=== PATIENT | female | born 1960 | race Caucasian/White ===

== ENCOUNTER → 2017-05-25 | Outpatient (CLI) | payer OTHER ==
[~2017-05-25] MED LIST: ADVIN50050 INH; ALBUAER2 INH; ALL180 PO; BUPRTAB51 PO; LOW OGESTREL PO; MOME50SP5 NAE; SNG10 PO
--- NOTE | 2017-05-25 10:50 | DIAGNOSTIC IMAGING REPORT ---
CHEST 2 VIEWS ROUTINE HISTORY: 56 years-old Female acute shortness of breath with cough for 3 weeks. COMPARISON: CT chest 05/30/2008 TECHNIQUE: Frontal and lateral views of the chest. FINDINGS: Cardiomediastinal and hilar silhouettes are within normal limits. Mild right hemidiaphragmatic elevation is redemonstrated. There is no pneumothorax, pleural effusion or focal airspace consolidation. Linear opacities of the lingula are again seen suggesting subsegmental atelectasis or scarring. The bones are intact. Upper abdominal structures appear unremarkable. IMPRESSION: Subsegmental atelectasis or scarring of the lingula without acute cardiopulmonary process. The above report was generated using voice recognition software. It may contain grammatical, syntax or spelling errors. Electronically signed by: Yasir Lehman M.D. 05/25/2017 10:49 AM Dictated Date/Time: 05/25/2017 10:47 AM
== END | disposition home or self-care (01) ==
LOC: C.RADBC 10:35
PROVIDERS: ATTEND Nurse Practitioner Family
DX: R05 Cough (principal); R06.2 Wheezing

== ENCOUNTER 2024-11-10 05:16 | Observation (INO) ==
--- NOTE | 2024-10-28 16:01 | Anesthesiology Consultation ---
Date of Service October 28, 2024 Assessment & Plan (1) Encounter for pre-operative examination: - Per tin flipper on 10/28/24: No known infectious disease contacts, current infectious disease symptoms in past 10 days or COVID positive test result in the past 30 days. Chart Review Chart Review: Acceptable Risk for Surgery and Patient NOT seen in Pre Admission Testing History Surgery Operation Date: 11/10/24 08:20 Proposed Procedures p Laparoscopic Cholecystectomy with Cholangiogram, Possible Open - Sonu Barney MD, FACS Height/Weight Height: 5 ft 5.5 in Weight: 83.915 kg Allergies Allergy/AdvReac Type Severity Reaction Status Date / Time codeine AdvReac Mild sick to Verified 10/28/24 15:06 stomach Medications Home Medications Medication Instructions Recorded Confirmed Last Taken bupropion HCl 300 mg 24 hr tablet, 300 mg PO QAM 11/17/19 10/28/24 Unknown extended release fluticasone propionate 230 2 puffs inhalation BID 11/17/19 10/28/24 Unknown mcg-salmeterol 21 mcg/actuation HFA inhaler meloxicam 15 mg tablet 15 mg PO QAM 11/17/19 10/28/24 Unknown albuterol sulfate 2.5 mg/3 mL 2.5 mg inhalation Q4H PRN sob 11/23/19 10/28/24 Unknown (0.083 %) solution for nebulization albuterol sulfate 90 mcg/actuation 2 puffs inhalation Q4H PRN 11/23/19 10/28/24 Unknown aerosol inhaler shortness of breath or wheezing #18 grams fexofenadine 180 mg tablet 180 mg PO QAM 10/28/24 10/28/24 Unknown pantoprazole 40 mg tablet,delayed 40 mg PO QAM 10/28/24 10/28/24 Unknown release vitamin E 200 unit tablet 180 mg PO QAM 10/28/24 10/28/24 Unknown Past Medical History Medical History (Updated 10/28/24 @ 15:58 by Samia Alonso PA-C) Asthma "rarely uses rescue inhaler" Depression Elevated cholesterol GERD (gastroesophageal reflux disease) Herpes simplex type 1 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>just completed valtrex History of bronchitis Seasonal allergies Past Family History Family History Unknown Heart disease COPD (chronic obstructive pulmonary disease) Ulcerative colitis Asthma Mother Clotting disorder Heart disease Stroke Other No family history of adverse response to anesthesia Past Surgical History Surgical History History of bronchoscopy History of carpal tunnel surgery right/left History of tooth extraction Hx of colonoscopy Social History Smoking Status: Former smoker Do You Dip or Chew Tobacco: No Smoking End Date: at age 27 Hx Alcohol Use: No substance use type: does not use Lab Results Anesthesia Preop Results Results Anesthesia Widget: WBC 5.18 K/ul (4.8-10.8) 10/03/24 Hgb 15.3 g/dl (12.0-16.0) 10/03/24 Hct 44.7 % (37.0-47.0) 10/03/24 Plt 364 K/uL (130-400) 10/03/24 Na 140 mmol/L (136-145) 10/03/24 K 4.1 mmol/L (3.5-5.1) 10/03/24 Cl 106 mmol/L (98-107) 10/03/24 CO2 28 mmol/L (21-32) 10/03/24 BUN 15 mg/dl (6-23) 10/03/24 Creat 1.10 mg/dl (0.6-1.2) 10/03/24 Glucose Level 91 mg/dl (70-99(Fasting)) 10/03/24 Testing Electrocardiogram Date: 09/26/24 NSR, rate 94 bpm Left anterior fascicular block
[2024-11-10] MEDS: LACTATED RINGER'S 1,000 ML IV SCH (05:47)
--- NOTE | 2024-11-10 06:15 | History & Physical Bridge Note ---
Date of Service November 10, 2024 History & Physical Bridge Note I have examined the patient, reviewed the History & Physical and in the interval since the performance of the History & Physical I have noted the following changes of clinical significance: no changes noted SO at bedside All question answered
[2024-11-10] MEDS ORDERED: ONDANSETRON INJ 2 MG/ML 2 ML VIAL ONE ×2 (06:39→15:03)
[2024-11-10] MEDS ORDERED: ROCURONIUM BROMIDE 10 MG/ML 5 ML VIAL IV ONE ×3 (06:39→15:03)
[2024-11-10] MEDS ORDERED: DEXAMETHASONE SOD INJ 4 MG/ML VIAL ONE ×3 (06:39→15:03)
[2024-11-10] MEDS ORDERED: PROPOFOL IV EMULSION 10 MG/ML 20 ML VIAL IV ONE ×2 (06:39→15:03)
[2024-11-10] MEDS ORDERED: fentaNYL citrate PF 100 MCG/2 ML VIAL ONE ×2 (06:40→15:03)
[2024-11-10] MEDS ORDERED: MIDAZOLAM HCL 1 MG/ML 2ML VIAL ONE ×2 (06:40→15:03)
[2024-11-10] MEDS ORDERED: SUGAMMADEX SODIUM 200 MG/2 ML VIAL IV ONE (06:42)
[2024-11-10] MEDS ORDERED: PHENYLEPHRINE HCL 10 MG/ML VIAL ONE (06:44)
[2024-11-10] MEDS ORDERED: ATROPINE SULFATE 0.1 MG/ML 10ML SYR IV PRN ×2 (06:53→15:24)
[2024-11-10] MEDS ORDERED: ONDANSETRON INJ 2 MG/ML 2 ML VIAL IV PRN ×3 (06:53→15:48)
[2024-11-10] MEDS ORDERED: ePHEDrine sulfate 50 MG/ML AMP IV PRN ×2 (06:53→15:24)
[2024-11-10] MEDS ORDERED: PROMETHAZINE HCL 6.25 MG in SODIUM CHLORIDE 0.9% 50 ML IV PRN (06:53)
[2024-11-10] MEDS: ceFAZolin 2000MG 2,000 MG/15 ML SYR IV ONE (07:12)
[2024-11-10] MEDS ORDERED: diphenhydrAMINE 50 MG/ML VIAL ONE (07:14)
[2024-11-10] MEDS ORDERED: ceFAZolin 330 MG/ML 1 GM VIAL ONE (07:14)
[2024-11-10] MEDS: GLUCAGON FOR INJ 1 MG VIAL ONE (07:35)
[2024-11-10] MEDS ORDERED: KETOROLAC 30 MG/ML VIAL ONE (07:41)
[2024-11-10] MEDS: OPTIRAY 320 100ml IV PRN (07:45)
--- NOTE | 2024-11-10 08:17 | Post Operative Brief Note ---
Immediate Post Op Note Date of Surgery November 10, 2024 Pre & Post Diagnosis Operation Date: 11/10/24 07:00 Pre-Op Diagnosis: Gallstones Post-Op Diagnosis: Gallstones I identified the patient and participated in the time-out.: Yes Procedure Operation Date: 11/10/24 07:00 Actual Procedures p Laparoscopic Cholecystectomy with Cholangiogram(Not Applicable) - Sonu Barney MD, FACS Surgeon Sonu Barney MD, FACS Cant Hooker Shiela AGUILAR Estimated Blood Loss 10 Findings Consistent with Post-Op Diagnosis Drains Elmer Drain
[2024-11-10] MEDS: LIDOCAINE 1%/EPINEPHRINE 1:100,000 50 ML VIAL ONE (08:23)
--- NOTE | 2024-11-10 08:55 | Operative Report ---
PG Post Operative Report Pre & Post Diagnosis Operation Date: 11/10/24 07:00 Pre-Op Diagnosis: Gallstones Post-Op Diagnosis: Gallstones I identified the patient and participated in the time-out.: Yes Procedure Operation Date: 11/10/24 07:00 Actual Procedures p Laparoscopic Cholecystectomy with Cholangiogram(Not Applicable) - Sonu Barney MD, FACS The patient was brought into the operating room supine position general endotracheal anesthesia systemic biotics on board patient identified timeout was had made a small incision supraumbilically sufficient for a Veress needle followed by 5 mm trocar the patient had a prominent abdominal tissue in fact the Veress needle was to the hub before we were able to enter the abdomen once established good pneumoperitoneum on direct visualization we placed an epigastric 5 mm port and 2 right upper quadrant 5 mm ports on direct visualization the patient was rotated to the left in reverse Trendelenburg able to identify the gallbladder was grasped with the lateral right upper quadrant trocar site elevated the gallbladder which was slightly tense no adhesions at this point we worked her way to the leo hepatis area identified the cystic duct we can easily appreciate the common bile duct there was slightly prominent we are able to dissect out around the cystic duct which was dilated we clipped a pproximately one 5 mm trocar and a small opening in the cystic duct was made a 4 urethral catheter transversing abdominal wall was positioned in the cystic duct x-rays were taken which showed a filling defect in the distal common bile duct we gave 1 mg of glucagon tried to flush it out was unsuccessful therefore at this point we continued with dividing the cystic duct twice with clips 5 mm and took the antegrade approach to remove the gallbladder but prior to doing that since the gallbladder was slightly tense we aspirated a significant amount that would make it easier to grasp and manipulated part of the gallbladder was intrahepatic but we meticulously dissected out to avoid any significant blood loss once the gallbladder was removed from the liver placed in an Endopouch and taken out intact through the epigastric port we needed to enlarge the port such because the patient had a very prominent stones that we were able to remove with a Viri clamp and a sponge forceps we irrigated the subhepatic suprahepatic area sufficiently there were small bleeders in the gallbladder fossa that we cauterized at this point we elected to drain the area since the patient was going to have an ERCP and a 19 Elmer drain was brought into the wound entering into the epigastric area and placed the subhepatic leak taken it out to the lateral right upper quadrant trocar attaching the skin edge with 2-0 silk we then placed the camera in the mid epigastric port to visualize the initial entry into the abdomen no bleeding was identified and also we visualized the epigastric port the site and it was removed no bleeding was identified ports were removed since we had to enlarge the incision in the epigastric area I placed a fascial stitch 2-0 Vicryl and also 2-0 Vicryl subcutaneous 4-0 Monocryl subcuticularly Steri-Strips applied procedure was tolerated well by the patient estimated blood loss 10 cc AddendumShiela AGUILAR was present about the procedure and helped the retraction exposure wound closure Surgeon Sonu Barney MD, FACS Currency Examiner Shiela AGUILAR Estimated Blood Loss 10 Findings Consistent with Post-Op Diagnosis Chronic cholecystitis cholelithiasis and choledocholithiasis Specimens Gallbladder and cannot Drains 19 Elmer subhepatic Complications None Indications Increased abdominal discomfort right upper quadrant pain ultrasound documenting cholelithiasis slight dilated common bile duct which was present on a previous ultrasound that she had on 09/15/2022 and was unchanged from the ultrasound that she had on 10/03/2024 Description of Procedure merda I attest to the content of the Intraoperative Record and any orders documented therein. Any exceptions are noted below.
[2024-11-10] MEDS: fentaNYL citrate PF 100 MCG/2 ML VIAL IV PRN (09:00)
--- NOTE | 2024-11-10 09:21 | Anesthesiology Progress Note ---
Date of Service November 10, 2024 Anesthesia Post Procedure Vital Signs Vital Signs: Temp Pulse Pulse Resp BP Pulse Ox O2 Del Method 11/10/24 09:15 73 18 121/72 96 Nasal Cannula 11/10/24 09:05 69 16 119/70 92 Nasal Cannula 11/10/24 08:55 73 15 121/68 95 Room Air 11/10/24 08:45 74 20 115/67 94 Oxymask 11/10/24 08:35 76 22 125/65 92 Oxymask 11/10/24 08:33 36.1 C L 81 18 110/65 92 Oxymask 11/10/24 05:48 36.7 C 83 20 137/86 94 Room Air O2 Flow Rate 11/10/24 09:15 2 11/10/24 09:05 4 11/10/24 08:55 11/10/24 08:45 9 11/10/24 08:35 9 11/10/24 08:33 9 11/10/24 05:48 Pain Intensity Abdomen: Pain Intensity: 5 Transfer of Care Handoff Completed per policy Notes Mental Status: alert / awake / arousable and participated in evaluation Patient Amnestic to Procedure: Yes Nausea / Vomiting: adequately controlled Pain: adequately controlled Airway Patency, RR, SpO2: stable & adequate BP & HR: stable & adequate Hydration State: stable & adequate Anesthetic Complications: no major complications apparent and Pt Satisfied with anesthetic care
[2024-11-10] MEDS: HYDROmorphone INJ 1 MG/ML SYRINGE IV PRN (09:54)
[2024-11-10] MEDS ORDERED: ALBUTEROL HFA 8 GM INHALER INH PRN (11:12)
[2024-11-10] MEDS ORDERED: ALBUTEROL 0.083% NEBU SOLN 3 ML VIAL INH PRN (11:12)
[2024-11-10] MEDS ORDERED: MoRPHine SULFATE 4 MG/ML 1 ML CARP\\VIAL IV PRN (11:12)
--- NOTE | 2024-11-10 11:28 | Gastrointestinal Consultation ---
Date of Consultation November 10, 2024 Assessment & Plan (1) Gallstones: 63 year old female s/p CCY on 11/10/24 being admitted for a positive intraoperative cholangiogram. She has had biliary dilation on previous imaging modalities and transaminase elevation. Maintain NPO status Will discuss timing of ERCP w/ attending - Risks, benefits, alternative to ERCP testing discussed We appreciate assistance in the management of any serological abnormality and corrections to include: hemoglobin >7, INR <2, platelets >50,000, potassium levels >3.5 but <5.3, and sodium levels within 5 points of the reference range prior to endoscopic evaluation. Thank you for allowing us to participate in the care of this patient. Please call with any acute changes, questions or concerns. Please see addendum below with additional recommendation from my supervising physician. I spent a total of 60 minutes on the date of service in review of patient's record, and previously obtained information in person and appropriate medical visit, discussion and education of plan, with patient and/or caregiver, placing orders for tests/referral/procedures as medically necessary and documentation of pertinent clinical information in patient's medical records for their visit today. Supervising Physician Co-Signing Physician Notes Documented common duct stone on intraoperative cholangiogram. Patient is INR is normal. Reviewed in detail ERCP. Benefits including stone extraction risks including perforation bleeding and pancreatitis. Potential failure rate of cannulation also discussed. Patient agreeable to proceed. Proceed today. Give indomethacin suppositories. History of Present Illness Reason for Consultation: + IOC Requesting Physician: Sonu Barney MD, FACS Attending Physician: Sonu Barney MD, FACS History of Present Illness 63 year old female w/ history of asthma and others below admitted following CCY today for a positive IOC. Pt was seen and evaluated in PACU. updated in waiting room. She notes intermittent post-prandial abd pain, specifically after greasier/fattier foods. Known gallstones and decision was made to proceed with CCY. She is still drowsy from sedation but denies any acute abd pain today. Tbili 0.6 AST 41 ALT 118 ALKP 138 ABD US 2024: Cholelithiasis without sonographic evidence of acute cholecystitis.Borderline dilation of the common bile duct is unchanged from prior. Hepatic steatosis. Allergies Allergy/AdvReac Type Severity Reaction Status Date / Time codeine AdvReac Mild sick to Verified 11/10/24 05:33 stomach Home Medications Medication Instructions Recorded Confirmed Type bupropion HCl 300 mg 24 hr tablet, 300 mg PO QAM 11/17/19 11/10/24 History extended release fluticasone propionate 230 2 puffs inhalation BID 11/17/19 11/10/24 History mcg-salmeterol 21 mcg/actuation HFA inhaler meloxicam 15 mg tablet 15 mg PO QAM 11/17/19 11/10/24 History albuterol sulfate 2.5 mg/3 mL 2.5 mg inhalation Q4H PRN sob 11/23/19 11/10/24 History (0.083 %) solution for nebulization albuterol sulfate 90 mcg/actuation 2 puffs inhalation Q4H PRN 11/23/19 11/10/24 Rx aerosol inhaler shortness of breath or wheezing #18 grams fexofenadine 180 mg tablet 180 mg PO QAM 10/28/24 11/10/24 History pantoprazole 40 mg tablet,delayed 40 mg PO QAM 10/28/24 11/10/24 History release vitamin E 200 unit tablet 180 mg PO QAM 10/28/24 11/10/24 History Patient History Medical History Herpes simplex type 1 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>just completed valtrex GERD (gastroesophageal reflux disease) Depression Elevated cholesterol Seasonal allergies Asthma "rarely uses rescue inhaler" History of bronchitis Surgical History (Updated 11/10/24 @ 09:46 by Dina Ladd RN) S/P laparoscopic cholecystectomy (11/10/24) Laparoscopic Cholecystectomy with Cholangiogram with kimberly drain Dr. Barney History of tooth extraction History of bronchoscopy Hx of colonoscopy History of carpal tunnel surgery right/left Family History Unknown Heart disease COPD (chronic obstructive pulmonary disease) Ulcerative colitis Asthma Mother Clotting disorder Heart disease Stroke Other No family history of adverse response to anesthesia Social History (Updated 10/26/24 @ 15:52 by Dina Ladd RN) Smoking Status: Former smoker Tobacco Type: Cigarettes Smoking End Date: at age 27; Second Hand Exposure: Yes (as a child); Do You Dip or Chew Tobacco: No; Hx Alcohol Use: No Preferred Language: Burmese Inside Outside Sales Representative Required: No Beliefs That Will Affect Care: None marital status: Current Living Situation: Spouse current occupational status: retired Feels Safe at Home: Yes Safety Concerns: Feels Safe At This Time during the past year weight has: remained stable Assistive Devices: Glasses Review of Systems Review of Systems: All other findings negative except as noted in HPI. Physical Exam Constitutional: WD/WN, vitals as above Respiratory: normal respiratory effort Cardiovascular: Rate/Rhythm: regular rate and regular rhythm Gastrointestinal (Abdomen): Inspection/Auscultation: normal bowel sounds Percussion/Palpation: abdomen soft Results & Data Vital Signs (Past 12 Hours) Vital Signs Temp Pulse Pulse Resp BP Pulse Ox O2 Del Method 11/10/24 11:00 79 21 122/66 92 Nasal Cannula 11/10/24 10:45 77 21 116/72 92 Nasal Cannula 11/10/24 10:30 76 20 129/72 92 Nasal Cannula 11/10/24 10:15 71 14 127/69 94 Nasal Cannula 11/10/24 10:05 75 17 123/73 94 Nasal Cannula 11/10/24 09:55 75 15 130/79 95 Nasal Cannula 11/10/24 09:45 77 11 L 136/69 94 Nasal Cannula 11/10/24 09:35 70 13 132/69 95 Nasal Cannula 11/10/24 09:25 75 11 L 120/66 94 Nasal Cannula 11/10/24 09:15 73 18 121/72 96 Nasal Cannula 11/10/24 09:05 69 16 119/70 92 Nasal Cannula 11/10/24 08:55 73 15 121/68 95 Room Air 11/10/24 08:45 74 20 115/67 94 Oxymask 11/10/24 08:35 76 22 125/65 92 Oxymask 11/10/24 08:33 97.0 F L 81 18 110/65 92 Oxymask 11/10/24 05:48 98.1 F 83 20 137/86 94 Room Air O2 Flow Rate 11/10/24 11:00 2 11/10/24 10:45 2 11/10/24 10:30 2 11/10/24 10:15 2 11/10/24 10:05 2 11/10/24 09:55 2 11/10/24 09:45 2 11/10/24 09:35 2 11/10/24 09:25 2 11/10/24 09:15 2 11/10/24 09:05 4 11/10/24 08:55 11/10/24 08:45 9 11/10/24 08:35 9 11/10/24 08:33 9 11/10/24 05:48 PG Care Time/CCT Total # of Minutes Spent Total Time Spent with Patient: Total time spent is greater than 50% in coordination of care (as documented) at patient's floor/unit and/or counseling patient: Coding Level of Care Code 06296 INT INP/OBS CARE MIN Diagnoses Gallstones K80.20
[2024-11-10] MEDS: SODIUM CHLORIDE 0.9% 1,000 ML IV SCH (11:33)
[2024-11-10] MEDS: ACETAMINOPHEN 1,000 MG/100 ML VIAL IV PRN (11:35)
[2024-11-10] MEDS: ONDANSETRON INJ 2 MG/ML 2 ML VIAL ONE (11:44)
[2024-11-10 12:32] LABS: Basophils # (auto) 0.02 K/uL (0.00-0.20); Basophils % (auto) 0.2 %; Eosinophils # (auto) 0.02 K/uL (0.00-0.50); Eosinophils % (auto) 0.2 %; Hematocrit (blood only) 40.1 % (37.0-47.0); Hemoglobin 13.7 g/dl (12.0-16.0); Immature Granulocytes # (auto) 0.04 K/uL (0.01-0.20); Immature Granulocytes % (auto) 0.4 %; Lymphocytes # (auto) 0.35 K/uL (1.20-3.40); Lymphocytes % (auto) 3.5 %; Mean Corpuscular Hemoglobin 32.5 pg (25.0-34.0); Mean Corpuscular Hgb Conc 34.2 g/dL (32.0-36.0); Mean Platelet Volume 9.5 fL (9.4-12.4); Monocytes % (auto) 7.1 %; Neutrophils # (auto) 8.77 K/uL (1.40-6.50); Neutrophils % (auto) 88.6 %; Platelet Count 279 K/uL (130-400); RDW Coefficient of Variation 11.9 % (11.5-14.5); RDW Standard Deviation 41.1 fL (36.4-46.3); Red Blood Count 4.22 M/uL (4.20-5.40)
[2024-11-10] MEDS: ONDANSETRON INJ 2 MG/ML 2 ML VIAL IV STA (12:47)
[2024-11-10 12:51] LABS: Albumin Globulin Ratio 1.6 (0.9-2); Albumin Level 3.9 gm/dl (3.4-5.0); BUN Creatinine Ratio 13.1 (10-20); Calcium 9.2 mg/dl (8.6-10.3); Creatinine Clr Calc Pharmacy 64.1 ml/min; Globulin 2.4 gm/dl (2.5-4.0); Total Protein 6.3 gm/dl (6.0-8.3)
[2024-11-10 12:56] LABS: Prothrombin Time 10.6 Seconds (9.0-12.0)
[2024-11-10] MEDS: buPROPion XL 300 MG TABCR PO SCH (13:36)
[2024-11-10] MEDS: PANTOprazole 40 MG TAB PO SCH (13:40)
[2024-11-10] MEDS: FEXOFENADINE HCL 180 MG TAB PO SCH (13:40)
[2024-11-10] MEDS ORDERED: LIDOCAINE 2% 2 ML VIAL/AMP(20MG/ML) INFIL ONE (15:03)
[2024-11-10] MEDS ORDERED: SUCCINYLCHOLINE CHLORIDE 20 MG/ML 10 ML VIAL IV ONE (15:09)
[2024-11-10] MEDS ORDERED: fentaNYL citrate PF 100 MCG/2 ML VIAL IV PRN (15:24)
--- NOTE | 2024-11-10 15:24 | Anesthesiology Consultation ---
Date of Service November 10, 2024 Assessment & Plan Chart Review Chart Review: Acceptable Risk for Surgery and Patient NOT seen in Pre Admission Testing Consults Requested none History Surgery Operation Date: 11/10/24 07:00 Proposed Procedures p Laparoscopic Cholecystectomy with Cholangiogram, Possible Open - Sonu Barney MD, FACS Operation Date: 11/10/24 07:50 Proposed Procedures p Endoscopic Retrograde Cholangiopancreatogram - Pierce Rosa MD Height/Weight Height: 5 ft 5.5 in Weight: 85.1 kg Allergies Allergy/AdvReac Type Severity Reaction Status Date / Time codeine AdvReac Mild sick to Verified 11/10/24 05:33 stomach Medications Home Medications Medication Instructions Recorded Confirmed Last Taken bupropion HCl 300 mg 24 hr tablet, 300 mg PO QAM 11/17/19 11/10/24 11/10/24 04:30 extended release fluticasone propionate 230 2 puffs inhalation BID 11/17/19 11/10/24 Unknown mcg-salmeterol 21 mcg/actuation HFA inhaler meloxicam 15 mg tablet 15 mg PO QAM 11/17/19 11/10/24 11/03/24 08:00 albuterol sulfate 2.5 mg/3 mL 2.5 mg inhalation Q4H PRN sob 11/23/19 11/10/24 Unknown (0.083 %) solution for nebulization albuterol sulfate 90 mcg/actuation 2 puffs inhalation Q4H PRN 11/23/19 11/10/24 Unknown aerosol inhaler shortness of breath or wheezing #18 grams fexofenadine 180 mg tablet 180 mg PO QAM 10/28/24 11/10/24 11/10/24 04:30 pantoprazole 40 mg tablet,delayed 40 mg PO QAM 10/28/24 11/10/24 11/10/24 04:30 release vitamin E 200 unit tablet 180 mg PO QAM 10/28/24 11/10/24 11/03/24 08:00 Active Medications Generic Name Dose Route Start Last Admin Trade Name Freq PRN Reason Stop Dose Admin Bupropion HCl 300 mg 11/10/24 11:12 11/10/24 13:36 Bupropion Xl 300 Mg Tabcr PO 12/10/24 11:11 [facility] Fexofenadine HCl 180 mg 11/10/24 11:12 11/10/24 13:40 Fexofenadine Hcl 180 Mg Tab PO 12/10/24 11:11 Not Given QAM FARRAH Sodium Chloride 1,000 mls @ 125 mls/hr 11/10/24 08:45 11/10/24 11:33 Nss IV 11/11/24 08:44 125 mls/hr .Q8H FARRAH Administration Acetaminophen 1,000 mg in 100 mls @ 400 mls/hr 11/10/24 11:12 11/10/24 12:46 Ofirmev IV 11/13/24 11:11 Infused Q8H PRN Infusion Pain or Fever Pantoprazole Sodium 40 mg 11/10/24 11:12 11/10/24 13:40 Pantoprazole 40 Mg Tab PO 12/10/24 11:11 Not Given QAM FARRAH NPO Date Last Intake of Fluids: 11/10/24 Time Last Intake of Fluids: 04:30 Last Intake of Fluids Comment: sip with med Date Last Intake of Solids: 11/09/24 Time Last Intake of Solids: 21:00 Past Medical History Medical History Herpes simplex type 1 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>just completed valtrex GERD (gastroesophageal reflux disease) Depression Elevated cholesterol Seasonal allergies Asthma "rarely uses rescue inhaler" History of bronchitis Past Family History Family History Unknown Heart disease COPD (chronic obstructive pulmonary disease) Ulcerative colitis Asthma Mother Clotting disorder Heart disease Stroke Other No family history of adverse response to anesthesia Past Surgical History Surgical History (Updated 11/10/24 @ 09:46 by Dina Ladd, DENI) S/P laparoscopic cholecystectomy (11/10/24) Laparoscopic Cholecystectomy with Cholangiogram with kimberly drain Dr. Barney History of tooth extraction History of bronchoscopy Hx of colonoscopy History of carpal tunnel surgery right/left Social History Smoking Status: Former smoker Do You Dip or Chew Tobacco: No Smoking End Date: at age 27 Hx Alcohol Use: No substance use type: does not use Physical Exam Vital Signs Last Vital Signs Temp 37.3 C 11/10/24 15:19 Pulse 96 H 11/10/24 15:19 Resp 18 11/10/24 15:19 BP 136/71 11/10/24 15:19 Pulse Ox 92 11/10/24 15:19 O2 Del Method Room Air 11/10/24 15:19 O2 Flow Rate 2 11/10/24 14:12 Testing Laboratory Results 11/10/24 12:13 11/10/24 12:13 PT 10.6 Seconds (9.0-12.0) 11/10/24 12:13 INR 1.0 (0.9-1.1) 11/10/24 12:13
--- NOTE | 2024-11-10 16:57 | Communication Note ---
Date of Service: November 10, 2024 ERCP Common duct stone seen on IOC. Stone identified at ERCP. Patient had duodenal diverticulum cannulation was deep cannulation of the common bile duct. Biliary sphincterotomy was undertaken single stone extracted. Duct draining well post. Recheck LFTs tomorrow, pancreas was not injected though we will recheck a lipase. Likely discharge tomorrow
--- NOTE | 2024-11-10 17:03 | GI REPORT ---
[facility] Patient: [place] WELLER : 1960 Sex at : Female Age: 63 Years Procedure: ERCP Date: 11/10/2024 Attending Physician: Pierce Rosa MD Referring MD: Sonu Barney Indications: - Bile duct stone(s) Medications: - General Anesthesia Complications: - No immediate complications. Estimated Blood Loss: - Estimated blood loss was minimal. Procedure: - The ercp scope was introduced through the mouth and advanced to the duodenum and used to inject contrast into the bile duct. - The ERCP was accomplished without difficulty. - The patient tolerated the procedure well. Findings: - This flexible video duodenoscope was advanced to the second part of the duodenum. There was some bile in the duodenum. The patient had a duodenal diverticulum. The ampullary orifice was within the diverticulum initial cannulation was deep cannulation of the common bile duct. Distal duct appears slightly dilated. Common duct stone confirmed. Biliary sphincterotomy undertaken. The sphincterotomy was in the 12 o'clock position. The cut was extended until there is a good return of bile from the duct. The sphincterotomy was felt to be adequate for stone extraction. A 8 to 15 mm balloon was inserted into the bile duct. The balloon was inflated to 12 mm the duct was swept with extraction of the stone. The duct within was injected 1 more time without definite filling defects. 1 more sweep was undertaken. The procedure was completed. Duct appeared to be draining well post. Impression: - This flexible video duodenoscope was advanced to the second part of the duodenum. There was some bile in the duodenum. The patient had a duodenal diverticulum. The ampullary orifice was within the diverticulum initial cannulation was deep cannulation of the common bile duct. Distal duct appears slightly dilated. Common duct stone confirmed. Biliary sphincterotomy undertaken. The sphincterotomy was in the 12 o'clock position. The cut was extended until there is a good return of bile from the duct. The sphincterotomy was felt to be adequate for stone extraction. A 8 to 15 mm balloon was inserted into the bile duct. The balloon was inflated to 12 mm the duct was swept with extraction of the stone. The duct within was injected 1 more time without definite filling defects. 1 more sweep was undertaken. The procedure was completed. Duct appeared to be draining well post. - Single common duct stone extracted Recommendation: - Clear fluids tonight. Check labs biochemistries tomorrow. Likely discharge in the absence of complication. Procedure Code(s): - 58832, Endoscopic retrograde cholangiopancreatography (ERCP); diagnostic, including collection of specimen(s) by brushing or washing, when performed (separate procedure) Diagnosis Code(s): - K80.50, Calculus of bile duct without cholangitis or cholecystitis without obstruction CPT(R) - 2023 copyright [employer]. All Rights Reserved. The CPT codes, CCI edits and ICD codes generated are intended as suggestions and were generated based on input data. These codes are preliminary and upon link wire fabric machine tender review may be revised to meet current compliance and payer requirements. The provider is responsible for the final determination of appropriate codes, and modifiers. Pierce Rosa MD This document has been electronically signed. Note Initiated:11/10/2024 Note Completed:11/10/2024 5:01 PM [id number]
--- NOTE | 2024-11-10 17:37 | Anesthesiology Progress Note ---
Date of Service November 10, 2024 Anesthesia Post Procedure Vital Signs Vital Signs: Temp Pulse Pulse Pulse Resp BP Pulse Ox 11/10/24 17:30 89 18 109/70 95 11/10/24 17:20 86 16 113/63 94 11/10/24 17:11 36.1 C L 90 18 121/73 94 11/10/24 15:19 37.3 C 96 H 18 136/71 92 11/10/24 14:12 36.6 C 83 18 126/78 95 11/10/24 13:15 36.4 C L 90 16 117/72 96 11/10/24 12:44 36.7 C 87 16 110/68 95 11/10/24 12:30 11/10/24 12:11 36.6 C 84 16 115/68 95 11/10/24 11:30 80 20 106/68 92 11/10/24 11:00 79 21 122/66 92 11/10/24 10:45 77 21 116/72 92 11/10/24 10:30 76 20 129/72 92 11/10/24 10:15 71 14 127/69 94 11/10/24 10:05 75 17 123/73 94 11/10/24 09:55 75 15 130/79 95 11/10/24 09:45 77 11 L 136/69 94 11/10/24 09:35 70 13 132/69 95 11/10/24 09:25 75 11 L 120/66 94 11/10/24 09:15 73 18 121/72 96 11/10/24 09:05 69 16 119/70 92 11/10/24 08:55 73 15 121/68 95 11/10/24 08:45 74 20 115/67 94 11/10/24 08:35 76 22 125/65 92 11/10/24 08:33 36.1 C L 81 18 110/65 92 11/10/24 05:48 36.7 C 83 20 137/86 94 O2 Del Method O2 Flow Rate 11/10/24 17:30 Oxymask 5 11/10/24 17:20 Oxymask 10 11/10/24 17:11 Oxymask 10 11/10/24 15:19 Room Air 11/10/24 14:12 Nasal Cannula 2 11/10/24 13:15 Room Air 11/10/24 12:44 Nasal Cannula 2 11/10/24 12:30 Room Air 11/10/24 12:11 Room Air 11/10/24 11:30 Nasal Cannula 2 11/10/24 11:00 Nasal Cannula 2 11/10/24 10:45 Nasal Cannula 2 11/10/24 10:30 Nasal Cannula 2 11/10/24 10:15 Nasal Cannula 2 11/10/24 10:05 Nasal Cannula 2 11/10/24 09:55 Nasal Cannula 2 11/10/24 09:45 Nasal Cannula 2 11/10/24 09:35 Nasal Cannula 2 11/10/24 09:25 Nasal Cannula 2 11/10/24 09:15 Nasal Cannula 2 11/10/24 09:05 Nasal Cannula 4 11/10/24 08:55 Room Air 11/10/24 08:45 Oxymask 9 11/10/24 08:35 Oxymask 9 11/10/24 08:33 Oxymask 9 11/10/24 05:48 Room Air Pain Intensity Abdomen: Pain Intensity: 5 Transfer of Care Handoff Completed per policy Notes Mental Status: alert / awake / arousable Patient Amnestic to Procedure: Yes Nausea / Vomiting: adequately controlled Pain: adequately controlled Airway Patency, RR, SpO2: stable & adequate BP & HR: stable & adequate Hydration State: stable & adequate Anesthetic Complications: no major complications apparent and Pt Satisfied with anesthetic care
--- NOTE | 2024-11-10 17:58 | Communication Note ---
Date of Service: November 10, 2024 Post ERCP Patient assessed in recovery room. No abdominal pain. Feels well. Spoke with Jacoby by phone advised him of the test results stone extraction and continued observation tonight potential discharge tomorrow in the absence of any complication
[2024-11-10] MEDS: ceFAZolin 2000MG 2,000 MG/15 ML SYR IV SCH (18:09)
[2024-11-10] MEDS: INDOMETHACIN 50 MG SUPP PR ONE (18:40)
[2024-11-10] MEDS: MoRPHine SULFATE 2 MG/ML CARP IV PRN (19:35)
[2024-11-11 05:51] LABS: Hematocrit (blood only) 38.3 % (37.0-47.0); Hemoglobin 13.2 g/dl (12.0-16.0); Mean Corpuscular Hemoglobin 33.2 pg (25.0-34.0); Mean Corpuscular Hgb Conc 34.5 g/dL (32.0-36.0); Mean Corpuscular Volume 96.5 fL (80.0-100.0); Mean Platelet Volume 9.8 fL (9.4-12.4); Platelet Count 293 K/uL (130-400); RDW Coefficient of Variation 11.9 % (11.5-14.5); RDW Standard Deviation 41.9 fL (36.4-46.3); Red Blood Count 3.97 M/uL (4.20-5.40); White Blood Count 13.12 K/ul (4.8-10.8)
[2024-11-11 06:08] LABS: Albumin Globulin Ratio 1.5 (0.9-2); Albumin Level 3.7 gm/dl (3.4-5.0); BUN Creatinine Ratio 13.8 (10-20); Bilirubin,Total 0.5 mg/dl (0.2-1.0); Creatinine Clr Calc Pharmacy 67.5 ml/min; Globulin 2.5 gm/dl (2.5-4.0); Potassium 4.2 mmol/L (3.5-5.1); Total Protein 6.2 gm/dl (6.0-8.3)
[2024-11-11 06:14] LABS: Basophils # (auto) 0.01 K/uL (0.00-0.20); Basophils % (auto) 0.1 %; Immature Granulocytes # (auto) 0.04 K/uL (0.01-0.20); Immature Granulocytes % (auto) 0.3 %; Lymphocytes # (auto) 0.68 K/uL (1.20-3.40); Lymphocytes % (auto) 5.2 %; Monocytes # (auto) 0.57 K/uL (0.11-0.59); Monocytes % (auto) 4.3 %; Neutrophils # (auto) 11.82 K/uL (1.40-6.50); Neutrophils % (auto) 90.1 %; Polychromasia 1+
--- NOTE | 2024-11-11 06:48 | Surgery Progress Note ---
Date of Service November 11, 2024 Assessment & Plan (1) Gallstones: Plan: Patient had laparoscopic cholecystectomy yesterday intraoperative cholangiogram delineated the distal common bile duct stone ERCP was performed yesterday a stone was extracted the patient tolerated the procedure well At this point the patient tolerates a diet today is minimal pain she can be discharged to return Thursday to the office to remove the Elmer drain Plan Plan to discharge later today if tolerates diet To return to office on Thursday for Elmer drain removal Admission and Anticipated Discharge Date Admission Date: November 10, 2024 Subjective Feels well no nausea or abdominal discomfort Physical Exam Physical Exam: Alert coherent in no distress Sclera nonicteric Elmer drainage right upper quadrant minimal serosanguineous drainage nonbilious Rest of the abdomen is negative Results & Data Vital Signs (Past 12 Hours) Vital Signs Temp Pulse Resp BP Pulse Ox O2 Del Method O2 Flow Rate 11/11/24 04:00 36.8 C 89 19 119/71 96 Room Air 11/10/24 23:00 36.8 C 95 H 18 116/74 93 Nasal Cannula 2 11/10/24 20:30 36.6 C 94 H 18 121/76 93 Nasal Cannula 2 11/10/24 19:40 Nasal Cannula 2 11/10/24 19:29 36.8 C 94 H 19 126/77 94 Nasal Cannula 2
[2024-11-11 07:58] VITALS: BP 104/66; RESP 16; TEMP 98.4; O2SAT 91
[2024-11-11] MEDS: FLUTICASONE/VILANTEROL 200/25MCG 14 PUFFS/INHALER INH SCH (08:01)
--- NOTE | 2024-11-11 08:19 | Fluoroscopy Report ---
[place] ERCP biliary ductal CLINICAL HISTORY: for ERCP today TECHNIQUE: 1 views were obtained with the C-arm in the OR with the above procedure. Total fluoroscopy time was 129.3 seconds. Radiation dose was 46.31 mGy. Comparison: Comparison is made to cholangiogram 11/10/2024 FINDINGS/IMPRESSION: Intraoperative images were obtained of ERCP. Please correlate with intraoperative fluoroscopy and operative report. ACT 112: Negative or not required by law. Electronically signed by: Darrian Tan M.D. 11/11/2024 8:18 AM
--- NOTE | 2024-11-11 10:35 | Gastroenterology Progress Note ---
Date of Service November 11, 2024 Assessment & Plan (1) Gallstones: Plan: 63 year old female s/p CCY on 11/10/24 being admitted for a positive intraoperative cholangiogram. She has had biliary dilation on previous imaging modalities and transaminase elevation. S/P ERCP w/ sphincterotomy and stone extraction. Clinically feeling well w/ downtrending LFTs. Continue diet as tolerated No GI contraindication to discharge Thank you for allowing us to participate in the care of this patient. Please call with any acute changes, questions or concerns. Please see addendum below with additional recommendation from my supervising physician. I spent a total of 40 minutes on the date of service in review of patient's record, and previously obtained information in person and appropriate medical visit, discussion and education of plan, with patient and/or caregiver, placing orders for tests/referral/procedures as medically necessary and documentation of pertinent clinical information in patient's medical records for their visit today. Admission and Anticipated Discharge Date Admission Date: November 10, 2024 Subjective Feeling well. Tolerated breakfast. No nausea/vomiting. Transaminases downtrending, lipase not elevated. ERCP 2024: Single common duct stone extracted Review of Systems Review of Systems: All other findings negative except as noted in HPI. Physical Exam Constitutional: WD/WN, vitals as above Respiratory: normal respiratory effort, lungs clear to auscultation Cardiovascular: Rate/Rhythm: regular rate and regular rhythm Gastrointestinal (Abdomen): normal bowel sounds, soft, nontender, no hepatosplenomegaly Results & Data Results & Data Vital Signs (Past 12 Hours) Vital Signs Temp Pulse Resp BP Pulse Ox O2 Del Method O2 Flow Rate 11/11/24 07:57 98.4 F 90 16 104/66 91 Room Air 11/11/24 04:00 98.2 F 89 19 119/71 96 Room Air 11/10/24 23:00 98.2 F 95 H 18 116/74 93 Nasal Cannula 2 Laboratory Results 11/11/24 11/10/24 Range/Units 05:29 12:13 WBC 13.12 H 9.90 (4.8-10.8) K/ul RBC 3.97 L 4.22 (4.20-5.40) M/uL Hgb 13.2 13.7 (12.0-16.0) g/dl Hct 38.3 40.1 (37.0-47.0) % MCV 96.5 95.0 (80.0-100.0) fL MCH 33.2 32.5 (25.0-34.0) pg MCHC 34.5 34.2 (32.0-36.0) g/dL RDW Std Deviation 41.9 41.1 (36.4-46.3) fL RDW Coeff of Melanie 11.9 11.9 (11.5-14.5) % Plt Count 293 279 (130-400) K/uL MPV 9.8 9.5 (9.4-12.4) fL Immature Gran % (Auto) 0.3 0.4 % Neut % (Auto) 90.1 88.6 % Lymph % (Auto) 5.2 3.5 % Mingo % (Auto) 4.3 7.1 % Eos % (Auto) 0.0 0.2 % Baso % (Auto) 0.1 0.2 % Neut # (Auto) 11.82 H 8.77 H (1.40-6.50) K/uL Lymph # (Auto) 0.68 L 0.35 L (1.20-3.40) K/uL Mingo # (Auto) 0.57 0.70 H (0.11-0.59) K/uL Eos # (Auto) 0.00 0.02 (0.00-0.50) K/uL Baso # (Auto) 0.01 0.02 (0.00-0.20) K/uL Immature Gran # (Auto) 0.04 0.04 (0.01-0.20) K/uL Polychromasia 1+ PT 10.6 (9.0-12.0) Seconds INR 1.0 (0.9-1.1) Sodium 136 138 (136-145) mmol/L Potassium 4.2 4.0 (3.5-5.1) mmol/L Chloride 105 106 (98-107) mmol/L Carbon Dioxide 25 25 (21-32) mmol/L Anion Gap 6 7 (3-11) BUN 13 13 (6-23) mg/dl Creatinine 0.94 0.99 (0.6-1.2) mg/dl Est Cr Clr Drug Dosing 67.5 64.1 ml/min eGFR 68.61 64.47 BUN/Creatinine Ratio 13.8 13.1 (10-20) Glucose 160 H 121 H (70-99(Fasting)) mg/dl Calcium 9.0 9.2 (8.6-10.3) mg/dl Total Bilirubin 0.5 D 1.0 (0.2-1.0) mg/dl AST 130 H 422 H (13-39) U/L ALT 235 H 332 H (7-52) U/L Alkaline Phosphatase 131 H 149 H (34-104) U/L Total Protein 6.2 6.3 (6.0-8.3) gm/dl Albumin 3.7 3.9 (3.4-5.0) gm/dl Globulin 2.5 2.4 L (2.5-4.0) gm/dl Albumin/Globulin Ratio 1.5 1.6 (0.9-2) Lipase 13 (11-82) U/L PG Care Time/CCT Total # of Minutes Spent Total Time Spent with Patient: Total time spent is greater than 50% in coordination of care (as documented) at patient's floor/unit and/or counseling patient: Coding Level of Care Code 35699 SUB INP/OBS CARE 2MIN Diagnoses Gallstones K80.20
[2024-11-11 12:22] VITALS: PULSE 92
== END 2024-11-11 18:51 | disposition home or self-care (01) ==
LOC: PACUINP 05:16 → ASU 05:16 → 3W 12:10